=== PATIENT | female | born 1985 | race African-American/Black ===

== ENCOUNTER 2021-02-06 09:35 | Emergency (ER) | payer MEDICAID, OTHER ==
[~2021-02-06] VITALS: Ht 170.2 cm; Wt 106.0 kg
[2021-02-06 11:32] LABS: HEMATOCRIT. 29.9 % (36.0-48.0); HEMOGLOBIN. 10.4 g/dL (12.0-16.0); MEAN CORPUSCULAR HEMOGLOBIN 29.3 pg (28.0-32.0); MEAN CORPUSCULAR VOLUME 84.4 fL (81.0-99.0); MEAN PLATELET VOLUME 6.9 fl (7.4-10.4); PLATELET 302 x1000/uL (130-400); RED BLOOD CELL COUNT 3.54 mill/uL (4.2-5.4); RED CELL DISTRIBUTION WIDTH 14.3 % (11.6-14.6)
[2021-02-06 11:39] LABS: CHLORIDE 111 mEq/L (98-107)
[2021-02-06 13:26] LABS: PLATELET ESTIMATE NORMAL
[2021-02-06 14:27] VITALS: BP 131/55
== END 2021-02-06 14:27 | disposition home or self-care (01) ==
LOC: ER 09:35
DX: R07.89 Other chest pain (principal); R06.02 Shortness of breath
CPT/HCPCS: 36415; 71045; 80048; 84484; 85025; 85379; 93005; 93970; 99285